=== PATIENT | female | born 1995 | race Two or more races ===

== ENCOUNTER 2020-08-05 14:51 | Emergency (ER) | payer MEDICAID ==
[~2020-08-05] VITALS: Ht 149.9 cm; Wt 63.5 kg
--- NOTE | 2020-08-05 16:17 | Emergency Room Report ---
History of Present Illness General Chief Complaint: Abdominal Pain Source: Patient Present Illness HPI 24 YO Female presents to the ED c/o 10/16 in severity lower abdominal pain since yesterday. She reports that she stopped taking control last month and 2 weeks a go had her first period after a long time of not having one . She denies nausea or vomiting, constipation or diarrhea. Patient reports her pain was actually much worse yesterday and she felt bloated. Patient reports she took a gas medication which helped to relieve her symptoms. Patient reports symptoms are primarily low midline area of her stomach. Patient reports she still had mild residual symptoms today which prompted her to come to the emergency department to find out what is the cause of her symptoms. She denies dizziness. She denies vaginal discharge or genital rashes. She denies flank pain or hx of stones. She denies dysuria, hematuria, urinary frequency or urgency. She denies having any significant past medical history. Allergies: Coded Allergies: No Known Allergies (Unverified , 08/05/20) COVID-19 Screening Contact w/high risk pt: No Experienced COVID-19 symptoms?: No COVID-19 Testing performed WEB COORDINATOR: No Patient History Past Medical History: see triage record Past Surgical History: none Pertinent Family History: none Last Menstrual Period: 07/22 Now: No Reviewed Nursing Documentation: PMH: Agreed; PSxH: Agreed Nursing Documentation-PMH Past Medical History: No Stated History Review of Systems All Other Systems: negative except mentioned in HPI Physical Exam Vital Signs Date Time Temp Pulse Resp B/P (MAP) Pulse Ox O2 Delivery O2 Flow Rate FiO2 08/05/20 15:38 98.4 78 18 123/75 (91) 96 Room Air Sp02 EP Interpretation: reviewed, normal General Appearance: no apparent distress, alert, GCS 15, non-toxic Head: normocephalic, atraumatic Eyes: bilateral eye normal inspection, bilateral eye PERRL ENT: hearing grossly normal, normal voice Neck: full range of motion Respiratory: lungs clear, normal breath sounds, speaking full sentences Cardiovascular #1: regular rate, rhythm Gastrointestinal: normal bowel sounds, non tender, soft, no peritonitis, non- distended, no guarding, no rebound Rectal: deferred Genitourinary: normal inspection, no CVA tenderness, adnexa normal Musculoskeletal: normal range of motion, gait/station normal, non-tender Neurologic: alert, motor strength/tone normal, oriented x3, sensory intact, responsive, speech normal Psychiatric: judgement/insight normal Skin: no rash, normal color Lymphatic: no adenopathy Medical Decision Making PA Attestation Dr. Roach Is my supervising Physician whom patient management has been discussed with. Diagnostic Impression: Primary Impression: Abdominal pain Qualified Codes: R10.30 - Lower abdominal pain, unspecified ER Course 24 YO Female presents to the ED c/o 10/16 in severity lower abdominal pain since yesterday. She reports that she stopped taking control last month and 2 weeks a go had her first period after a long time of not having one . She denies nausea or vomiting, constipation or diarrhea. Patient reports her pain was actually much worse yesterday and she felt bloated. Patient reports she took a gas medication which helped to relieve her symptoms. Patient reports symptoms are primarily low midline area of her stomach. Patient reports she still had mild residual symptoms today which prompted her to come to the emergency department to find out what is the cause of her symptoms. She denies dizziness. She denies vaginal discharge or genital rashes. She denies flank pain or hx of stones. She denies dysuria, hematuria, urinary frequency or urgency. She denies having any significant past medical history. Ddx considered but are not limited to UTI, Diverticulitis, acute appy, portillo rrhea,UC, PUD, GE, pancreatitis, gallstone, ovarian cyst, ovarian torsion, ectopic , PID tubo-ovarian abscess. Vital signs: are WNL, pt. is afebrile. H&PE are most consistent with a patient that is nontoxic in appearance and in no acute distress, no evidence to suggest acute abdomen on exam. Patient has a very benign abdominal exam. Clinically this patient looks very healthy and well. NO CVA tenderness. ORDERS: -UA: Unremarkable no evidence of acute infection, some RBC's -URINE HCG: Negative ED INTERVENTIONS: - Offered PT. Toradol IM -- Pt. declines. D/w pt. that I do not suspect an acute condition requiring emergent interventions at this time. Her symptoms have resolved on their own progressively. Did go over potential differential diagnosis' with pt. and we discussed signs and symptoms. D/w pt. options for outpatient management and further evaluation this was a collaborative decision. Pt. given ED return precautions for worsening or new symptoms including some of those that were discussed pertaining to the differential diagnoses. DISCHARGE: At this time pt. is stable for d/c to home. Will provide printed patient care instructions, and any necessary prescriptions. Care plan and follow up instructions have been discussed with the patient prior to discharge. Labs Test 08/05/20 16:40 Urine Color Yellow Urine Appearance Clear Urine pH 5 (4.5-8.0) Urine Specific Gardner 1.020 (1.005-1.035) Urine Protein Negative (NEGATIVE) Urine Glucose (UA) Negative (NEGATIVE) Urine Ketones Negative (NEGATIVE) Urine Blood 3+ (NEGATIVE) Urine Nitrite Negative (NEGATIVE) Urine Bilirubin Negative (NEGATIVE) Urine Urobilinogen Normal MG/DL (0.0-1.0) Urine Leukocyte Esterase Negative (NEGATIVE) Urine RBC 0-2 /HPF (0 - 2) Urine WBC 0-2 /HPF (0 - 2) Urine Squamous Epithelial Cells Moderate /LPF (NONE/OCC) Urine Bacteria Few /HPF (NONE) Urine HCG, Qualitative Negative (NEGATIVE) Last Vital Signs Date Time Temp Pulse Resp B/P (MAP) Pulse Ox O2 Delivery O2 Flow Rate FiO2 08/05/20 15:38 98.4 78 18 123/75 (91) 96 Room Air Status: improved Disposition: HOME, SELF-CARE Condition: Stable Scripts Ibuprofen* (MOTRIN*) 600 Mg Tablet 600 MG ORAL THREE TIMES A DAY, #30 TAB Prov: Farnaz Henriquez 08/05/20 Referrals: NOT CHOSEN IPA/MD,REFERRING (PCP) Patient Instructions: Abdominal Pain, Adult, Ovarian Cyst, [id number] Additional Instructions: ~ ~ An emergent medical condition has not been identified based on this patients presentation, exam and any necessary testing/imaging. The patient is determined to be stable for outpatient follow-up and management of symptoms by a primary care provider. Take medications as directed. Follow up with a Primary Care Provider or [facility] within 3-5 days, even if your symptoms have resolved. Return sooner to ED if new symptoms occur, or current symptoms become worse. - Please note that this Emergency Department Report was dictated using [employer] software, occasionally this can lead to erroneous entry secondary to interpretation by the dictation equipment. Farnaz Henriquez Aug 05, 2020 16:17
--- NOTE | 2020-08-05 16:44 | NUR ---
ED Nurse Note: ua sent to lab
[2020-08-05 18:01] LABS: APPEARANCE,URINE CLEAR; BILIRUBIN, URINE NEGATIVE (NEGATIVE); GLUCOSE, URINE (UA) NEGATIVE (NEGATIVE); KETONES,URINE NEGATIVE (NEGATIVE); LEUKOCYTE ESTERASE ,URINE NEGATIVE (NEGATIVE); NITRITE,URINE NEGATIVE (NEGATIVE); PH,URINE 5 (4.5-8.0); PROTEIN,URINE NEGATIVE (NEGATIVE); UROBILINOGEN,URINE NORMAL MG/DL (0.0-1.0)
[2020-08-05 18:03] LABS: COLOR,URINE YELLOW
[2020-08-05 18:28] VITALS: BP 123/82
--- NOTE | 2020-08-05 18:38 | NUR ---
ER DISCHARGE NOTE: Patient is cleared to be discharged per ERMD, pt is aox4, on room air, with stable vital signs. pt was given dc and prescription instructions, pt was able to verbalize understanding, pt id band and iv site removed without complications. pt is able to ambulate with steady gait. pt took all belongings.
[2020-08-05] MEDS ORDERED: IBUPROFEN600 M1 ORAL (18:46)
== END 2020-08-05 19:10 | disposition home or self-care (01) ==
LOC: EMR 15:22
DX: R10.30 Lower abdominal pain, unspecified (principal)
CPT/HCPCS: 81003; 81025; Z7502; 99283